=== PATIENT | male | born 1945 | race Caucasian/White ===

== ENCOUNTER → 2021-09-26 | Day surgery (SDC) | payer OTHER ==
[~2021-09-26] VITALS: Ht 172.7 cm; Wt 99.8 kg
[~2021-09-26] MED LIST: 3IN1 COMMODE; ALDACTONE25 MG PO; ALLOPURINOL300 MG PO; ASPIRIN CHEWABL81 MG PO; CARAFATE1 GM PO; CARTIA XT240 MG PO; CLONIDINE HCL0.2 MG PO; FEOSOL325 MG PO; INDOCIN25 MG PO; K-DUR20 MEQ PO; LASIX20 MG PO; LOPID600 MG PO; LOVAZA1 GM PO; OMEPRAZOLE40 MG PO; POTASSIUM CHLO20 ME1 PO; PRINIVIL10 MG PO; SPIRONOLACTONE25 M1 PO; TOPROL XL 25MG25 MG PO; TOPROL XL 50 MG50 MG PO; ZAROXOLYN2.5 MG PO; ZESTORETIC 20-1 EACH PO
[2021-09-26 08:32] LABS: HCT 40.8 % (42.0-52.0); HGB 13.4 g/dl (13.2-18.0); MCH 30.5 pg (25.0-31.0); MCHC 32.8 g/dL (32.0-36.0); MCV 92.9 fL (78.0-100.0); MPV 10.5 fL (6.0-9.5); RBC 4.39 M/uL (4.70-6.00); RDW 14.6 % (11.5-14.0); WBC 6.5 K/uL (4.0-10.5)
[2021-09-26 08:49] LABS: ALBUMIN 3.7 g/dL (3.4-5.0); BILIRUBIN - TOTAL 0.7 mg/dL (0.2-1.0); BUN/CREAT RATIO (CALC) 21.8 RATIO; CREATININE 1.01 mg/dL (0.67-1.17); GLOBULIN (CALCULATION) 3.6 g/dL; POTASSIUM 4.3 mmol/L (3.5-5.1); TOTAL PROTEIN 7.3 g/dL (6.4-8.2)
== END | disposition home or self-care (01) ==
LOC: FAS 09-22 08:30
PROVIDERS: Surgery
DX: Z12.11 Encounter for screening for malignant neoplasm of colon (principal); K57.30 Diverticulosis of large intestine without perforation or abscess without bleeding; Z86.010 Personal history of colon polyps; I11.0 Hypertensive heart disease with heart failure; I50.9 Heart failure, unspecified; M19.90 Unspecified osteoarthritis, unspecified site; E78.5 Hyperlipidemia, unspecified; Z79.899 Other long term (current) drug therapy
CPT/HCPCS: 36415; 80053; J2704; J7120